=== PATIENT | female | born 2000 | race African-American/Black ===

== ENCOUNTER 2021-09-30 17:16 | Inpatient (IN) | payer OTHER ==
[2021-09-30] VITALS (17 sets, daily range): BP systolic 113–154; BP diastolic 52–96
[~2021-09-30] VITALS: Ht 157.5 cm; Wt 80.5 kg
[2021-09-30] MEDS ORDERED: MULTTAB20 PO (17:39)
[2021-09-30] MEDS ORDERED: HOME MED LIST COMPLETE! XX SCH (17:40)
[2021-09-30] MEDS ORDERED: LACTATED RINGER'S 1000 ML IV ONE (18:15)
[2021-09-30] MEDS ORDERED: LR 1,000 ML IV SCH (18:15)
[2021-09-30] MEDS ORDERED: OXYTOCIN INJ 10 UNITS/ML VIAL (J2590) IV PRN (18:15)
[2021-09-30] MEDS ORDERED: METHYLERGONOVINE MALEATE 0.2 MG/ML VIAL (J2210) IM PRN (18:15)
[2021-09-30] MEDS ORDERED: TRANEXAMIC ACID INJection 1,000 MG in NS 100 ML IV PRN (18:15)
[2021-09-30] MEDS ORDERED: OXYTOCIN DRIP 30 UNITS in IV 1 EA IV PRN ×4 (18:15)
[2021-09-30 19:29] LABS: HEMATOCRIT 35.4 % (36.0-47.0); HEMOGLOBIN 12.3 g/dl (12.0-15.5); MEAN CORPUSCULAR HEMOGLOBIN 31.8 pg (27.0-33.0); MEAN CORPUSCULAR HGB CONC 34.7 g/dl (32.0-36.5); MEAN CORPUSCULAR VOLUME 91.5 fl (80.0-96.0); PLATELET COUNT, AUTOMATED 164 10^3/uL (150-450); RED BLOOD COUNT 3.87 10^6/uL (4.00-5.40); WHITE BLOOD COUNT 16.4 10^3/uL (4.0-10.0)
[2021-09-30] MEDS ORDERED: FENTANYL 2MCG/ML ROPIVACAINE 0.2% IN 0.9% NACL 100ML IVBAG As Ordered ONE (19:38)
[2021-09-30] MEDS ORDERED: LACTATED RINGER'S 1000 ML IV PRN (20:45)
[2021-09-30] MEDS ORDERED: ONDANSETRON 4MG/2ML VIAL IV PRN (20:45)
[2021-09-30] MEDS ORDERED: FENTANYL/ROPIVACAINE/NACL BAG 100 ML EPIDURAL SCH (20:45)
[2021-09-30] MEDS ORDERED: EPIDURAL COMMENT XX SCH (20:45)
[2021-09-30] MEDS ORDERED: ePHEDrine SULFATE 25 MG/5 ML(5MG/ML) SYRINGE IV PRN (20:45)
[2021-09-30] MEDS ORDERED: REFRIGERATOR IV KEYS XX PRN (20:45)
[2021-09-30] MEDS ORDERED: diphenhydrAMINE 50MG/ML VIAL (J1200) IV PRN (20:45)
[2021-09-30] MEDS ORDERED: EPIDURAL/PCA KEYS XX PRN (20:45)
[2021-09-30] MEDS ORDERED: NALOXONE INJ 0.4MG/1ML VIAL (J2310 PER 1MG) IV PRN (20:45)
[2021-09-30] MEDS ORDERED: CALCIUM CARBONATE 500 MG CHEW U/D PO PRN (22:40)
[2021-10-01] VITALS (9 sets, daily range): BP systolic 109–129; BP diastolic 55–69
[2021-10-01 02:48] LABS: CORD GAS ABE A -3.6; CORD GAS HCO3 A 20.7 MEQ/L; CORD GAS O2 SAT A 72.5 %; CORD GAS PCO2 A 35.6 mmHg; CORD GAS PH A 7.383 UNITS; CORD GAS PO2 A 31.8 mmHg; CORD GAS SBC A 20.9 MEQ/L; CORD GAS TCO2 A 21.8 MEQ/L
[2021-10-01 02:49] LABS: CORD GAS ABE V -2.5; CORD GAS PCO2 V 37.6 mmHg; CORD GAS PH V 7.386 UNITS; CORD GAS SBC V 21.8 MEQ/L; CORD GAS TCO2 V 23.2 MEQ/L
[2021-10-01] MEDS ORDERED: MOM 30ML SUSPENSION UDC PO PRN (03:10)
[2021-10-01] MEDS ORDERED: DOCUSATE SODIUM 100MG CAPSULE PO PRN (03:10)
[2021-10-01] MEDS ORDERED: ACETAMINOPHEN TAB 650MG DOSE (2X325MG) PO PRN (03:10)
[2021-10-01] MEDS ORDERED: DIBUCAINE 1% OINTMENT 30GM TOP PRN (03:10)
[2021-10-01] MEDS ORDERED: RHOGAM 300 MCG (1500 IU) INJ (J2790) IM SCH (03:10)
[2021-10-01] MEDS ORDERED: MEASLES,MUMPS,RUBELLA VACCINE INJ (MMR-II) (90707) SC SCH (03:10)
[2021-10-01] MEDS ORDERED: LR 1,000 ML IV SCH (03:10)
[2021-10-01] MEDS ORDERED: OXYTOCIN DRIP 30 UNITS in IV 1 EA IV ONE (03:10)
[2021-10-01] MEDS ORDERED: METHYLERGONOVINE MALEATE 0.2 MG TAB PO PRN (03:10)
[2021-10-01] MEDS ORDERED: ANUSOL HC CREAM 30GM TOP PRN (03:10)
[2021-10-01] MEDS ORDERED: OXYTOCIN INJ 10 UNITS/ML VIAL (J2590) IV ONE (03:10)
[2021-10-01] MEDS: IBUPROFEN 600MG TAB PO PRN (07:30)
[2021-10-01] MEDS: PRENATAL VITAMINS CHEWABLE TABLET PO SCH (10:38)
[2021-10-02] MEDS: IBUPROFEN 600MG TAB PO PRN (05:31)
[2021-10-02 06:00] VITALS: BP 111/56
[2021-10-02 07:52] LABS: HEMATOCRIT 28.7 % (36.0-47.0); MEAN CORPUSCULAR HEMOGLOBIN 31.4 pg (27.0-33.0); MEAN CORPUSCULAR HGB CONC 33.8 g/dl (32.0-36.5); MEAN CORPUSCULAR VOLUME 92.9 fl (80.0-96.0); PLATELET COUNT, AUTOMATED 149 10^3/uL (150-450); RED BLOOD COUNT 3.09 10^6/uL (4.00-5.40); WHITE BLOOD COUNT 14.9 10^3/uL (4.0-10.0)
[2021-10-02 07:53] LABS: HEMOGLOBIN 9.7 g/dl (12.0-15.5)
[2021-10-02] MEDS: PRENATAL VITAMINS CHEWABLE TABLET PO SCH (08:38)
[2021-10-02 16:28] VITALS: BP 116/57
[2021-10-02] MEDS: ACETAMINOPHEN 500 MG TAB PO PRN (16:28)
[2021-10-02] MEDS ORDERED: SIMETHICONE 80MG CHEW TAB PO PRN (16:55)
[2021-10-02] MEDS: CALCIUM CARBONATE 500 MG CHEW U/D PO SCH ×2 (17:34→20:57)
[2021-10-02 17:56] VITALS: BP 122/57
[2021-10-03 05:40] VITALS: BP 105/53
[2021-10-03] MEDS: PRENATAL VITAMINS CHEWABLE TABLET PO SCH (08:35)
[2021-10-03] MEDS: CALCIUM CARBONATE 500 MG CHEW U/D PO SCH (08:35)
[2021-10-03] MEDS: ACETAMINOPHEN 500 MG TAB PO PRN (08:36)
== END 2021-10-03 12:40 | disposition home or self-care (01) | DRG 807 ==
LOC: M LDO 17:16 → M LDI 18:04 → M OBS 10-01 05:20
PROVIDERS: ADMIT Obstetrics & Gynecology; ATTEND Obstetrics & Gynecology
PROC: 10E0XZZ Delivery of Products of Conception, External Approach (ICD-10-PCS; principal; 2021-10-01)
PROC: 0HQ9XZZ Repair Perineum Skin, External Approach (ICD-10-PCS; 2021-10-01)
DX: O48.0 Post-term pregnancy (principal); Z37.0 Single live birth; Z3A.40 40 weeks gestation of pregnancy; I86.8 Varicose veins of other specified sites; O22.10 Genital varices in pregnancy, unspecified trimester

== ENCOUNTER 2022-09-27 17:12 | Emergency (ER) | payer OTHER ==
[~2022-09-27] VITALS: Ht 157.5 cm; Wt 86.1 kg
[~2022-09-27 17:12] MED LIST: MULTTAB20 PO
[2022-09-27] MEDS ORDERED: IBUPROFEN 100MG 5ML ORAL SUSP UDC PO ONE (18:05)
[2022-09-27] MEDS ORDERED: IBUPROFEN 600MG TAB PO ONE (18:10)
[2022-09-27] MEDS ORDERED: AMOX875T2 PO (19:15)
[2022-09-27] MEDS ORDERED: AUGMENTIN 875 MG TAB PO ONE (19:20)
[2022-09-27 19:24] VITALS: BP 133/78
== END 2022-09-27 19:28 | disposition home or self-care (01) ==
LOC: M ED 17:12
DX: S67.22XA Crushing injury of left hand, initial encounter (principal); S61.432A Puncture wound without foreign body of left hand, initial encounter; W54.0XXA Bitten by dog, initial encounter; Z79.2 Long term (current) use of antibiotics